=== PATIENT | female | born 2005 | race Caucasian/White ===

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

== ENCOUNTER 2024-07-17 16:32 | Outpatient (REF) | payer OTHER, SELFPAY ==
[2024-07-17 14:15] LABS: HCT 41.4 % (36.0-46.0); HGB 13.9 g/dL (11.2-15.7); MCHC 33.6 % (32.0-36.0); MCV 92 fL (80-95); MPV 9.9 fL (8.0-11.0); Platelet Count 351 10^3/uL (130-400); RBC 4.48 10^6/uL (3.93-5.22); RDW 12.2 % (11.7-14.6); RDW-SD 41.7 fL; WBC 6.96 10^3/uL (4.4-10.8)
[2024-07-17 14:30] LABS: Iron 114 ug/dL (50-170); Total Iron Binding Capacity 316 ug/dL (250-450)
[2024-07-17 14:40] LABS: Ferritin 56 ng/mL (8-252)
== END 2024-07-17 16:33 | disposition home or self-care (01) ==
LOC: NCHCN 16:32
PROVIDERS: PCP Nurse Practitioner Family; Visit Provider Nurse Practitioner Family
DX: L65.9 Nonscarring hair loss, unspecified (principal)
CPT/HCPCS: 85027; 82728; 83540; 83550; 84443